=== PATIENT | female | born 1940 | race Caucasian/White ===

== ENCOUNTER 2020-09-16 17:11 | Inpatient (IN) ==
[2020-09-17] MEDS ORDERED: [UNRECOGNIZED DRUG - REMARK] OP PRN (19:45)
[2020-09-17] MEDS ORDERED: hydrOXYzine pamoate 25 MG CAPSULE PO PRN (19:45)
[2020-09-17] MEDS ORDERED: Nitroglycerin 0.4 MG TAB.SUBL SL PRN (19:45)
[2020-09-17] MEDS ORDERED: *HR* Warfarin 3 MG TABLET PO ONE (20:30)
[2020-09-17] MEDS: Sennosides/Docusate Sodium TABLET PO SCH (22:46)
[2020-09-17] MEDS: hydrALAZINE 25 MG TABLET PO SCH (22:46)
[2020-09-17] MEDS: atenoloL 50 MG TABLET PO SCH (22:47)
[2020-09-17] MEDS: Cefdinir 300 MG CAPSULE PO SCH (22:48)
[2020-09-18] MEDS ORDERED: Acetaminophen 325 MG TABLET PO ONE (00:37)
[2020-09-18 05:45] LABS: INR 2.2; Prothrombin Time 24.5 Seconds (9.4-12.1)
[2020-09-18 05:46] LABS: Basophils % 0.3 %; Eosinophils # 0.3 K/mcL (0.0-0.6); Eosinophils % 2.2 %; Hematocrit 25.2 % (35.3-44.9); Hemoglobin 8.1 g/dL (11.5-15.4); Mean Corpuscular HGB Conc 32.1 g/dL (31.6-35.5); Mean Corpuscular Hemoglobin 28.2 pg (28.0-33.3); Mean Corpuscular Volume 87.8 fL (83.0-100.0); Mean Platelet Volume 8.9 fL (9.4-12.4); Monocytes # 1.2 K/mcL (0.0-1.3); Neutrophils # 8.9 K/mcL (1.6-8.9); Platelet Count 371 K/mcL (140-400); Red Blood Count 2.87 M/mcL (3.82-4.97); Red Cell Distribution Width 12.8 % (11.5-14.5); Segmented Neutrophils % 77.5 %; White Blood Count 11.5 K/mcL (4.3-11.1)
[2020-09-18 05:58] LABS: Calcium 8.4 mg/dL (8.6-10.3); Potassium 4.2 mEq/L (3.5-5.1)
[2020-09-18] MEDS: Budesonide/Formoterol 80/4.5 1 PUFF INH IH SCH ×2 (07:25→19:08)
[2020-09-18] MEDS: Fluticasone Propionate Nasal 50 MCG/SPRAY BOTTLE NS SCH (09:26)
[2020-09-18] MEDS: Isosorbide MONOnitrate (24 HR) 30 MG TAB.ER.24H PO SCH (09:27)
[2020-09-18] MEDS: atenoloL 50 MG TABLET PO SCH ×2 (09:28→21:54)
[2020-09-18] MEDS: Cyanocobalamin (B-12) 1,000 MCG TABLET PO SCH (09:28)
[2020-09-18] MEDS: hydrALAZINE 25 MG TABLET PO SCH ×4 (09:28→21:54)
[2020-09-18] MEDS: Multivit/Ca/Min/Fe/FA 1 TAB TABLET PO SCH (09:28)
[2020-09-18] MEDS: Cefdinir 300 MG CAPSULE PO SCH ×2 (09:28→21:50)
[2020-09-18] MEDS: Sennosides/Docusate Sodium TABLET PO SCH ×2 (09:28→21:50)
[2020-09-18] MEDS: Aspirin Enteric Coated 81 MG Tablet PO SCH (09:28)
[2020-09-18] MEDS: Ondansetron ODT 4 MG TAB.RAPDIS SL PRN ×2 (09:46→21:49)
[2020-09-18] MEDS ORDERED: *HR* Warfarin 4 MG TABLET PO ONE (18:00)
[2020-09-18] MEDS ORDERED: Warfarin perPT PO PRN (18:00)
[2020-09-19 05:45] LABS: INR 1.9; Prothrombin Time 20.9 Seconds (9.4-12.1)
[2020-09-19] MEDS: Budesonide/Formoterol 80/4.5 1 PUFF INH IH SCH ×2 (07:29→19:11)
[2020-09-19] MEDS: Sennosides/Docusate Sodium TABLET PO SCH ×2 (09:24→20:48)
[2020-09-19] MEDS: Isosorbide MONOnitrate (24 HR) 30 MG TAB.ER.24H PO SCH (09:24)
[2020-09-19] MEDS: Aspirin Enteric Coated 81 MG Tablet PO SCH (09:24)
[2020-09-19] MEDS: Multivit/Ca/Min/Fe/FA 1 TAB TABLET PO SCH (09:25)
[2020-09-19] MEDS: atenoloL 50 MG TABLET PO SCH ×2 (09:25→20:48)
[2020-09-19] MEDS: Cyanocobalamin (B-12) 1,000 MCG TABLET PO SCH (09:25)
[2020-09-19] MEDS: hydrALAZINE 25 MG TABLET PO SCH ×4 (09:25→20:48)
[2020-09-19] MEDS: Cefdinir 300 MG CAPSULE PO SCH ×2 (09:25→20:48)
[2020-09-19] MEDS: Fluticasone Propionate Nasal 50 MCG/SPRAY BOTTLE NS SCH (09:32)
[2020-09-19] MEDS: Ondansetron ODT 4 MG TAB.RAPDIS SL PRN ×2 (09:33→20:49)
[2020-09-19] MEDS: Acetaminophen 325 MG TABLET PO PRN ×2 (12:59→20:49)
[2020-09-19] MEDS ORDERED: *HR* Warfarin 5 MG TABLET PO ONE (18:00)
[2020-09-20 05:47] LABS: Prothrombin Time 22.8 Seconds (9.4-12.1)
[2020-09-20] MEDS: Sennosides/Docusate Sodium TABLET PO SCH ×2 (08:31→20:26)
[2020-09-20] MEDS: Isosorbide MONOnitrate (24 HR) 30 MG TAB.ER.24H PO SCH (08:31)
[2020-09-20] MEDS: hydrALAZINE 25 MG TABLET PO SCH ×4 (08:31→20:26)
[2020-09-20] MEDS: Cyanocobalamin (B-12) 1,000 MCG TABLET PO SCH (08:31)
[2020-09-20] MEDS: Aspirin Enteric Coated 81 MG Tablet PO SCH (08:32)
[2020-09-20] MEDS: atenoloL 50 MG TABLET PO SCH ×2 (08:32→20:26)
[2020-09-20] MEDS: Multivit/Ca/Min/Fe/FA 1 TAB TABLET PO SCH (08:32)
[2020-09-20] MEDS: Ondansetron ODT 4 MG TAB.RAPDIS SL PRN ×2 (08:32→20:02)
[2020-09-20] MEDS: Cefdinir 300 MG CAPSULE PO SCH (08:32)
[2020-09-20] MEDS: Acetaminophen 325 MG TABLET PO PRN ×2 (08:32→20:02)
[2020-09-20] MEDS: Fluticasone Propionate Nasal 50 MCG/SPRAY BOTTLE NS SCH (08:33)
[2020-09-20] MEDS: Budesonide/Formoterol 80/4.5 1 PUFF INH IH SCH ×2 (10:28→21:46)
[2020-09-20 10:54] LABS: Basophils % 0.3 %; Eosinophils # 0.3 K/mcL (0.0-0.6); Eosinophils % 1.9 %; Immature Granulocytes % 0.9 % (0-4); Lymphocytes % 7.3 %; Mean Corpuscular Hemoglobin 28.3 pg (28.0-33.3); Mean Corpuscular Volume 88.3 fL (83.0-100.0); Mean Platelet Volume 8.8 fL (9.4-12.4); Monocytes # 1.2 K/mcL (0.0-1.3); Monocytes % 9.1 %; Platelet Count 377 K/mcL (140-400); Red Blood Count 2.83 M/mcL (3.82-4.97); Segmented Neutrophils % 80.5 %; White Blood Count 13.1 K/mcL (4.3-11.1)
[2020-09-20 10:55] LABS: Neutrophils # 10.6 K/mcL (1.6-8.9)
[2020-09-20 11:11] LABS: Calcium 8.6 mg/dL (8.6-10.3); Potassium 4.6 mEq/L (3.5-5.1)
[2020-09-20] MEDS ORDERED: *HR* Warfarin 5 MG TABLET PO ONE (18:00)
[2020-09-21] MEDS: Acetaminophen 325 MG TABLET PO PRN ×2 (07:53→20:54)
[2020-09-21] MEDS: Ondansetron ODT 4 MG TAB.RAPDIS SL PRN (07:53)
[2020-09-21] MEDS: Cyanocobalamin (B-12) 1,000 MCG TABLET PO SCH (08:30)
[2020-09-21] MEDS: Aspirin Enteric Coated 81 MG Tablet PO SCH (08:30)
[2020-09-21] MEDS: atenoloL 50 MG TABLET PO SCH ×2 (08:30→20:50)
[2020-09-21] MEDS: Sennosides/Docusate Sodium TABLET PO SCH ×2 (08:30→20:49)
[2020-09-21] MEDS: hydrALAZINE 25 MG TABLET PO SCH ×4 (08:30→20:49)
[2020-09-21] MEDS: Isosorbide MONOnitrate (24 HR) 30 MG TAB.ER.24H PO SCH (08:30)
[2020-09-21] MEDS: Multivit/Ca/Min/Fe/FA 1 TAB TABLET PO SCH (08:30)
[2020-09-21 08:50] LABS: INR 2.3; Prothrombin Time 25.5 Seconds (9.4-12.1)
[2020-09-21] MEDS: Fluticasone Propionate Nasal 50 MCG/SPRAY BOTTLE NS SCH (09:06)
[2020-09-21] MEDS: Budesonide/Formoterol 80/4.5 1 PUFF INH IH SCH ×2 (09:57→21:50)
[2020-09-21] MEDS ORDERED: polyethylene glycoL 3350 17 GM POWD.PACK PO PRN (16:04)
[2020-09-21] MEDS ORDERED: *HR* Warfarin 5 MG TABLET PO ONE (18:00)
[2020-09-22 05:15] LABS: INR 2.6; Prothrombin Time 29.2 Seconds (9.4-12.1)
[2020-09-22] MEDS: Cyanocobalamin (B-12) 1,000 MCG TABLET PO SCH (08:04)
[2020-09-22] MEDS: Isosorbide MONOnitrate (24 HR) 30 MG TAB.ER.24H PO SCH (08:04)
[2020-09-22] MEDS: Multivit/Ca/Min/Fe/FA 1 TAB TABLET PO SCH (08:04)
[2020-09-22] MEDS: hydrALAZINE 25 MG TABLET PO SCH ×4 (08:04→20:14)
[2020-09-22] MEDS: Sennosides/Docusate Sodium TABLET PO SCH ×2 (08:04→20:18)
[2020-09-22] MEDS: Acetaminophen 325 MG TABLET PO PRN ×2 (08:04→20:21)
[2020-09-22] MEDS: Aspirin Enteric Coated 81 MG Tablet PO SCH (08:04)
[2020-09-22] MEDS: atenoloL 50 MG TABLET PO SCH ×2 (08:05→20:15)
[2020-09-22] MEDS: Fluticasone Propionate Nasal 50 MCG/SPRAY BOTTLE NS SCH (08:10)
[2020-09-22] MEDS: Budesonide/Formoterol 80/4.5 1 PUFF INH IH SCH ×2 (10:29→21:50)
[2020-09-22] MEDS ORDERED: Preparation H Ointment 57 GM TUBE RC PRN (12:09)
[2020-09-22 13:38] LABS: Calcium 8.7 mg/dL (8.6-10.3); Potassium 4.7 mEq/L (3.5-5.1)
[2020-09-22] MEDS ORDERED: *HR* Warfarin 4 MG TABLET PO ONE (18:00)
[2020-09-23 05:29] LABS: INR 3.1; Prothrombin Time 33.9 Seconds (9.4-12.1)
[2020-09-23 05:37] LABS: Calcium 8.6 mg/dL (8.6-10.3); Potassium 4.5 mEq/L (3.5-5.1)
[2020-09-23] MEDS: Aspirin Enteric Coated 81 MG Tablet PO SCH (08:12)
[2020-09-23] MEDS: Fluticasone Propionate Nasal 50 MCG/SPRAY BOTTLE NS SCH (08:12)
[2020-09-23] MEDS: Isosorbide MONOnitrate (24 HR) 30 MG TAB.ER.24H PO SCH (08:12)
[2020-09-23] MEDS: hydrALAZINE 25 MG TABLET PO SCH ×4 (08:12→20:22)
[2020-09-23] MEDS: Cyanocobalamin (B-12) 1,000 MCG TABLET PO SCH (08:12)
[2020-09-23] MEDS: atenoloL 50 MG TABLET PO SCH ×2 (08:12→20:21)
[2020-09-23] MEDS: Multivit/Ca/Min/Fe/FA 1 TAB TABLET PO SCH (08:12)
[2020-09-23] MEDS: Sennosides/Docusate Sodium TABLET PO SCH ×2 (08:14→20:22)
[2020-09-23] MEDS: Budesonide/Formoterol 80/4.5 1 PUFF INH IH SCH ×2 (09:33→21:42)
[2020-09-23] MEDS: Acetaminophen 325 MG TABLET PO PRN ×2 (09:35→20:23)
[2020-09-23] MEDS ORDERED: *HR* Warfarin 1 MG TABLET PO ONE (18:00)
[2020-09-24 06:02] LABS: INR 2.9; Prothrombin Time 31.9 Seconds (9.4-12.1)
[2020-09-24] MEDS: Budesonide/Formoterol 80/4.5 1 PUFF INH IH SCH ×2 (06:46→21:29)
[2020-09-24] MEDS: Isosorbide MONOnitrate (24 HR) 30 MG TAB.ER.24H PO SCH (08:08)
[2020-09-24] MEDS: Multivit/Ca/Min/Fe/FA 1 TAB TABLET PO SCH (08:08)
[2020-09-24] MEDS: Acetaminophen 325 MG TABLET PO PRN ×2 (08:08→16:57)
[2020-09-24] MEDS: Cyanocobalamin (B-12) 1,000 MCG TABLET PO SCH (08:08)
[2020-09-24] MEDS: hydrALAZINE 25 MG TABLET PO SCH ×4 (08:08→20:05)
[2020-09-24] MEDS: atenoloL 50 MG TABLET PO SCH ×2 (08:08→20:05)
[2020-09-24] MEDS: Aspirin Enteric Coated 81 MG Tablet PO SCH (08:08)
[2020-09-24] MEDS: Sennosides/Docusate Sodium TABLET PO SCH ×2 (08:08→20:05)
[2020-09-24] MEDS: Fluticasone Propionate Nasal 50 MCG/SPRAY BOTTLE NS SCH (08:09)
[2020-09-24] MEDS ORDERED: *HR* Warfarin 4 MG TABLET PO ONE (18:00)
[2020-09-24] MEDS: Melatonin 3 MG TABLET PO SCH (20:05)
[2020-09-25 05:45] LABS: INR 2.6; Prothrombin Time 29.3 Seconds (9.4-12.1)
[2020-09-25] MEDS: Budesonide/Formoterol 80/4.5 1 PUFF INH IH SCH ×2 (06:43→21:07)
[2020-09-25] MEDS: atenoloL 50 MG TABLET PO SCH ×2 (08:29→20:39)
[2020-09-25] MEDS: hydrALAZINE 25 MG TABLET PO SCH ×4 (08:30→20:38)
[2020-09-25] MEDS: Multivit/Ca/Min/Fe/FA 1 TAB TABLET PO SCH (08:30)
[2020-09-25] MEDS: Isosorbide MONOnitrate (24 HR) 30 MG TAB.ER.24H PO SCH (08:30)
[2020-09-25] MEDS: Sennosides/Docusate Sodium TABLET PO SCH ×2 (08:30→20:38)
[2020-09-25] MEDS: Cyanocobalamin (B-12) 1,000 MCG TABLET PO SCH (08:30)
[2020-09-25] MEDS: Aspirin Enteric Coated 81 MG Tablet PO SCH (08:30)
[2020-09-25] MEDS: Acetaminophen 325 MG TABLET PO PRN ×2 (08:39→20:46)
[2020-09-25] MEDS: Fluticasone Propionate Nasal 50 MCG/SPRAY BOTTLE NS SCH (09:55)
[2020-09-25] MEDS ORDERED: *HR* Warfarin 4 MG TABLET PO ONE (18:00)
[2020-09-25] MEDS: Melatonin 3 MG TABLET PO SCH (20:38)
[2020-09-26 05:28] LABS: Basophils % 0.4 %; Eosinophils # 0.8 K/mcL (0.0-0.6); Eosinophils % 7.4 %; Hematocrit 23.3 % (35.3-44.9); Hemoglobin 7.4 g/dL (11.5-15.4); Immature Granulocytes % 0.8 % (0-4); Lymphocytes # 1.3 K/mcL (0.6-4.6); Lymphocytes % 12.1 %; Mean Corpuscular HGB Conc 31.8 g/dL (31.6-35.5); Mean Corpuscular Hemoglobin 27.9 pg (28.0-33.3); Mean Corpuscular Volume 87.9 fL (83.0-100.0); Mean Platelet Volume 8.9 fL (9.4-12.4); Monocytes # 1.3 K/mcL (0.0-1.3); Monocytes % 11.3 %; Neutrophils # 7.6 K/mcL (1.6-8.9); Platelet Count 439 K/mcL (140-400); Red Blood Count 2.65 M/mcL (3.82-4.97); Red Cell Distribution Width 13.8 % (11.5-14.5); White Blood Count 11.1 K/mcL (4.3-11.1)
[2020-09-26 05:30] LABS: INR 2.5; Prothrombin Time 27.5 Seconds (9.4-12.1)
[2020-09-26 05:41] LABS: Calcium 8.6 mg/dL (8.6-10.3); Potassium 4.4 mEq/L (3.5-5.1)
[2020-09-26 07:31] VITALS: BP 104/55
[2020-09-26] MEDS: Sennosides/Docusate Sodium TABLET PO SCH (08:14)
[2020-09-26] MEDS: atenoloL 50 MG TABLET PO SCH (08:14)
[2020-09-26] MEDS: hydrALAZINE 25 MG TABLET PO SCH ×2 (08:14→14:02)
[2020-09-26] MEDS: Cyanocobalamin (B-12) 1,000 MCG TABLET PO SCH (08:14)
[2020-09-26] MEDS: Isosorbide MONOnitrate (24 HR) 30 MG TAB.ER.24H PO SCH (08:14)
[2020-09-26] MEDS: Multivit/Ca/Min/Fe/FA 1 TAB TABLET PO SCH (08:14)
[2020-09-26] MEDS: Aspirin Enteric Coated 81 MG Tablet PO SCH (08:14)
[2020-09-26] MEDS: Acetaminophen 325 MG TABLET PO PRN (08:20)
[2020-09-26] MEDS: Budesonide/Formoterol 80/4.5 1 PUFF INH IH SCH (09:30)
[2020-09-26] MEDS: Fluticasone Propionate Nasal 50 MCG/SPRAY BOTTLE NS SCH (10:24)
[2020-09-26] MEDS ORDERED: *HR* Warfarin 4 MG TABLET PO ONE (18:00)
== END 2020-09-26 14:03 | disposition home health service (06) | DRG 945 ==
LOC: INPGRE 09-17 17:41
PROVIDERS: ADMIT Family Medicine; ATTEND Family Medicine

== ENCOUNTER 2021-03-06 09:10 | Observation (INO) ==
[2021-03-06] MEDS ORDERED: Ipratropium/Albuterol Neb 3 ML ONE (09:22)
[2021-03-06] MEDS ORDERED: Aspirin 81 MG TAB.CHEW PO ONE (09:40)
[2021-03-06 09:49] LABS: Basophils # 0.1 K/mcL (0.0-0.2); Basophils % 0.7 %; Eosinophils # 0.3 K/mcL (0.0-0.6); Eosinophils % 3.9 %; Hematocrit 32.2 % (35.3-44.9); Hemoglobin 10.2 g/dL (11.5-15.4); Immature Granulocytes % 0.4 % (0-4); Lymphocytes # 1.7 K/mcL (0.6-4.6); Lymphocytes % 23.9 %; Mean Corpuscular HGB Conc 31.7 g/dL (31.6-35.5); Mean Corpuscular Hemoglobin 27.9 pg (28.0-33.3); Mean Corpuscular Volume 88.2 fL (83.0-100.0); Mean Platelet Volume 9.1 fL (9.4-12.4); Monocytes # 0.8 K/mcL (0.0-1.3); Monocytes % 10.5 %; Neutrophils # 4.4 K/mcL (1.6-8.9); Platelet Count 285 K/mcL (140-400); Red Blood Count 3.65 M/mcL (3.82-4.97); Red Cell Distribution Width 13.6 % (11.5-14.5); Segmented Neutrophils % 60.6 %; White Blood Count 7.2 K/mcL (4.3-11.1)
[2021-03-06 09:51] LABS: INR 2.6; Prothrombin Time 28.8 Seconds (9.4-12.1)
[2021-03-06 09:54] LABS: Activated Partial Thrombo Time 50.3 Seconds (26.0-36.0)
[2021-03-06 10:03] LABS: Troponin I < 0.03 ng/mL (< 0.04)
[2021-03-06 10:04] LABS: Alanine Aminotransferase 13 Units/L (7-52); Albumin 3.8 g/dL (3.5-5.7); Albumin/Globulin Ratio 1.2 (1.1-2.2); Alkaline Phosphatase 50 Units/L (34-104); Aspartate Amino Transferase 19 Units/L (13-39); BUN/Creatinine Ratio 14 (6-26); Bilirubin,Total 0.4 mg/dL (0.3-1.0); Blood Urea Nitrogen 22 mg/dL (8-23); Calcium 9.2 mg/dL (8.6-10.3); Carbon Dioxide 26 mEq/L (23-29); Chloride 98 mEq/L (98-107); Globulin 3.3 g/dL (2.4-3.5); Glucose 112 mg/dL (70-105); Osmolality,Calculated 278 (280-300); Sodium 132 mEq/L (136-145); Total Protein 7.1 g/dL (6.4-8.9); eGFR For African Americans 40 (> 60); eGFR For Non-African Americans 33 (> 60)
[2021-03-06] MEDS ORDERED: cefTRIAXone 1,000 MG in 0.9 % Sodium Chloride Mini Bag 100 ML IVPB ONE (10:24)
[2021-03-06] MEDS ORDERED: Azithromycin 500 MG in D5% in Water 250 ML IVPB ONE (10:24)
[2021-03-06] MEDS ORDERED: Ipratropium/Albuterol Neb 3 ML IH ONE (11:44)
[2021-03-06] MEDS ORDERED: Ondansetron 4 MG/2 ML VIAL IVP PRN (11:44)
[2021-03-06] MEDS ORDERED: Fluticasone Propionate Nasal 50 MCG/SPRAY BOTTLE NS PRN (11:44)
[2021-03-06] MEDS ORDERED: Nitroglycerin 0.4 MG TAB.SUBL SL PRN (11:44)
[2021-03-06] MEDS ORDERED: Naloxone 0.4 MG/ML INJ IVP PRN (11:44)
[2021-03-06] MEDS ORDERED: [UNRECOGNIZED DRUG - REMARK] OP PRN (11:44)
[2021-03-06] MEDS: hydrALAZINE 25 MG TABLET PO SCH ×3 (15:20→21:58)
[2021-03-06 15:55] LABS: Bilirubin,Urine Negative (Negative); Blood,Urine Negative (Negative); Clarity,Urine Clear (Clear); Color,Urine Yellow (Yellow); Glucose,Urine (UA) Normal (Normal); Ketones,Urine Negative (Negative); Leukocyte Esterase,Urine Large (Negative); Nitrite,Urine Positive (Negative); Protein,Urine Negative (Neg-Trace); Specific Gravity,Urine 1.015 (1.010-1.025); Urobilinogen,Urine Normal (Normal)
[2021-03-06 15:57] LABS: Bacteria,Urine Many per hpf (None-Few); RBC,Urine 0-3 per hpf (0-3); Squamous Epithelial Cell,Urine Few per hpf (None-Few)
[2021-03-06] MEDS ORDERED: *HR* Warfarin 4 MG TABLET PO SCH (18:00)
[2021-03-06 20:59] LABS: Adenovirus Not Detected (Not Detect); Bordetella Pertussis Not Detected (Not Detect); Chlamydophila pneumoniae Not Detected (Not Detect); Coronavirus 229E Not Detected (Not Detect); Coronavirus HKU1 Not Detected (Not Detect); Coronavirus NL63 Not Detected (Not Detect); Coronavirus OC43 Not Detected (Not Detect); Human Metapneumovirus Not Detected (Not Detect); Human Rhinovirus/Enterovirus Not Detected (Not Detect); Influenza A Subtype 2009 H1 Not Detected (Not Detect); Influenza B Not Detected (Not Detect); Mycoplasma pneumoniae Not Detected (Not Detect); Parainfluenza Virus 1 Not Detected (Not Detect); Parainfluenza Virus 2 Not Detected (Not Detect); Parainfluenza Virus 3 Not Detected (Not Detect); Parainfluenza Virus 4 Not Detected (Not Detect); Respiratory Syncytial Virus Not Detected (Not Detect); SARS-CoV-2 Not Detected (Not Detect)
[2021-03-06] MEDS: Budesonide/Formoterol 80/4.5 1 PUFF INH IH SCH (21:15)
[2021-03-06] MEDS: Sennosides/Docusate Sodium TABLET PO SCH (21:58)
[2021-03-06] MEDS: atenoloL 50 MG TABLET PO SCH (21:58)
[2021-03-06] MEDS: 0.9 % Sodium Chloride 1,000 ML IVC SCH (21:59)
[2021-03-07] MEDS: methylPREDNISolone 125 MG/2 ML VIAL IVP SCH ×3 (00:22→16:46)
[2021-03-07 05:06] LABS: Basophils % 0.3 %; Eosinophils % 0.1 %; Hematocrit 30.3 % (35.3-44.9); Hemoglobin 9.6 g/dL (11.5-15.4); Immature Granulocytes % 0.5 % (0-4); Lymphocytes % 12.3 %; Mean Corpuscular HGB Conc 31.7 g/dL (31.6-35.5); Mean Corpuscular Hemoglobin 27.7 pg (28.0-33.3); Mean Corpuscular Volume 87.3 fL (83.0-100.0); Mean Platelet Volume 9.1 fL (9.4-12.4); Monocytes # 0.1 K/mcL (0.0-1.3); Monocytes % 1.2 %; Neutrophils # 6.7 K/mcL (1.6-8.9); Platelet Count 254 K/mcL (140-400); Red Blood Count 3.47 M/mcL (3.82-4.97); Red Cell Distribution Width 13.6 % (11.5-14.5); Segmented Neutrophils % 85.6 %; White Blood Count 7.8 K/mcL (4.3-11.1)
[2021-03-07 05:11] LABS: INR 2.7; Prothrombin Time 30.2 Seconds (9.4-12.1)
[2021-03-07 05:23] LABS: Calcium 9.2 mg/dL (8.6-10.3); Potassium 4.4 mEq/L (3.5-5.1)
[2021-03-07] MEDS: 0.9 % Sodium Chloride 1,000 ML IVC SCH (06:49)
[2021-03-07] MEDS: Multivit/Ca/Min/Fe/FA 1 TAB TABLET PO SCH (08:11)
[2021-03-07] MEDS: cefTRIAXone 1,000 MG in Water for inj. (sterile) 10 ML IVP SCH (08:11)
[2021-03-07] MEDS: hydrALAZINE 25 MG TABLET PO SCH ×4 (08:11→21:16)
[2021-03-07] MEDS: Sennosides/Docusate Sodium TABLET PO SCH ×2 (08:11→21:16)
[2021-03-07] MEDS: Isosorbide MONOnitrate (24 HR) 30 MG TAB.ER.24H PO SCH (08:11)
[2021-03-07] MEDS: Aspirin Enteric Coated 81 MG Tablet PO SCH (08:11)
[2021-03-07] MEDS: Cyanocobalamin (B-12) 1,000 MCG TABLET PO SCH (08:11)
[2021-03-07] MEDS: atenoloL 50 MG TABLET PO SCH ×2 (08:11→21:16)
[2021-03-07] MEDS: Acetaminophen 325 MG TABLET PO PRN ×2 (08:20→21:16)
[2021-03-07] MEDS: Budesonide/Formoterol 80/4.5 1 PUFF INH IH SCH ×2 (10:35→21:12)
[2021-03-07] MEDS ORDERED: Warfarin perPT PO PRN (18:00)
[2021-03-07] MEDS ORDERED: *HR* Warfarin 5 MG TABLET PO ONE (18:00)
[2021-03-08] MEDS: methylPREDNISolone 125 MG/2 ML VIAL IVP SCH ×2 (00:32→08:26)
[2021-03-08 05:59] LABS: Hematocrit 28.5 % (35.3-44.9); Hemoglobin 9.1 g/dL (11.5-15.4); Immature Granulocytes % 0.7 % (0-4); Lymphocytes % 8.2 %; Mean Corpuscular HGB Conc 31.9 g/dL (31.6-35.5); Mean Corpuscular Hemoglobin 27.8 pg (28.0-33.3); Mean Corpuscular Volume 87.2 fL (83.0-100.0); Mean Platelet Volume 9.6 fL (9.4-12.4); Monocytes # 0.4 K/mcL (0.0-1.3); Monocytes % 2.9 %; Platelet Count 261 K/mcL (140-400); Red Blood Count 3.27 M/mcL (3.82-4.97); Red Cell Distribution Width 13.5 % (11.5-14.5); Segmented Neutrophils % 88.2 %; White Blood Count 12.3 K/mcL (4.3-11.1)
[2021-03-08 06:06] LABS: INR 2.4; Prothrombin Time 27.4 Seconds (9.4-12.1)
[2021-03-08 06:14] LABS: Neutrophils # 10.9 K/mcL (1.6-8.9)
[2021-03-08 06:18] LABS: Potassium 4.3 mEq/L (3.5-5.1)
[2021-03-08] MEDS: cefTRIAXone 1,000 MG in Water for inj. (sterile) 10 ML IVP SCH (08:26)
[2021-03-08] MEDS: Cyanocobalamin (B-12) 1,000 MCG TABLET PO SCH (08:27)
[2021-03-08] MEDS: Isosorbide MONOnitrate (24 HR) 30 MG TAB.ER.24H PO SCH (08:27)
[2021-03-08] MEDS: atenoloL 50 MG TABLET PO SCH (08:27)
[2021-03-08] MEDS: Aspirin Enteric Coated 81 MG Tablet PO SCH (08:27)
[2021-03-08] MEDS: Sennosides/Docusate Sodium TABLET PO SCH (08:27)
[2021-03-08] MEDS: Multivit/Ca/Min/Fe/FA 1 TAB TABLET PO SCH (08:27)
[2021-03-08] MEDS: hydrALAZINE 25 MG TABLET PO SCH (08:27)
[2021-03-08] MEDS: Acetaminophen 325 MG TABLET PO PRN (08:29)
[2021-03-08] MEDS: Budesonide/Formoterol 80/4.5 1 PUFF INH IH SCH (09:17)
[2021-03-08 11:00] VITALS: BP 178/77
== END 2021-03-08 12:03 | disposition home or self-care (01) ==
LOC: INPGRE 09:10 → EMEROOGRE 09:10 → INPGRE 11:21
PROVIDERS: ADMIT Family Medicine; ATTEND Family Medicine